=== PATIENT | male | born 1970 | race Caucasian/White ===

== ENCOUNTER 2020-03-28 23:20 | Inpatient (IN) | payer MEDICAID ==
[~2020-03-28] VITALS: Ht 170.2 cm; Wt 70.9 kg
[2020-03-28 23:30] VITALS: BP 133/83
--- NOTE | 2020-03-28 23:30 | NUR ---
ASSISTANT INVENTORY MANAGERRURAL CARRIER NOTES PATIENT ADMITTED DIRECTLY FROM [facility]. IN STABLE CONDITION. AMBULATORY. A/OX3-4; PRIMARY LANGUAGE [place]. PATIENT DENIES N/V/D AT THIS TIME. C/O UPPER ABDOMINAL PAIN RATED 7/10. IV PRESENT ON LEFT AC, SIZE 20, INTACT & PATENT, HEP LOCKED. UPON SKIN ASSESSMENT, MULTIPLE LARGE CIRCULAR BRUISES PRESENT ON BACK FROM CUPPING; PICTURES TAKEN AND PLACED IN CHART. BELONGINGS REVIEWED WITH PATIENT; WALLET AND PASSPORT PRESENT; PATIENT STATES HE WANTS TO KEEP BELONGINGS WITH HIM AT THE BEDSIDE; BELONGINGS LIST SIGNED AND PLACED IN CHART. SAFETY MEASURES IN PLACE AND PATIENT'S NEEDS MET. BED LOCKED, SIDE RAILS X2, HOB ELEVATED, CALL LIGHT WITHIN REACH. AUTOMATION SOFTWARE ENGINEER EFRAIN DAMON, MADE AWARE OF NEW ADMISSION; AWAITING FOR ADMITTING ORDERS. WILL CONTINUE TO MONITOR.
[2020-03-29] VITALS (8 sets, daily range): BP systolic 123–157; BP diastolic 65–101
[2020-03-29] MEDS ORDERED: ONDANSETRON HCL/PF 4 MG/2 ML VIAL IVP PRN (01:30)
[2020-03-29] MEDS ORDERED: MAGNESIUM HYDROXIDE 30 ML UDC PO PRN (01:30)
[2020-03-29] MEDS ORDERED: ACETAMINOPHEN 325 MG TABLET PO PRN (01:30)
[2020-03-29] MEDS ORDERED: MAG HYDROX/AL HYDROX/SIMETH 30 ML UDC PO PRN (01:30)
[2020-03-29] MEDS ORDERED: LORAZEPAM INJ 2 MG/ML VIAL IV PRN (01:30)
[2020-03-29] MEDS ORDERED: Z GUARD REMEDY 2 OZ OINT TP PRN (01:30)
[2020-03-29] MEDS ORDERED: HYDROCODONE/APAP 5/325MG 1 EACH TABLET PO PRN (01:30)
[2020-03-29] MEDS: PANTOPRAZOLE 40 MG VIAL IV SCH ×3 (01:35→21:21)
[2020-03-29] MEDS: IV NS 0.9% 1,000 ML IV SCH ×3 (01:36→21:28)
[2020-03-29 02:09] LABS: OCCULT BLOOD STOOL POSITIVE (NEGATIVE)
[2020-03-29 02:14] LABS: BASOPHILS # (AUTO) 0.2 /CMM (0.0-0.2); BASOPHILS % (AUTO) 1.6 % (0.0-2.0); EOSINOPHILS % (AUTO) 0.3 % (0.0-6.0); HEMATOCRIT 36 % (39-51); HEMOGLOBIN 12.2 g/dL (13.5-17.5); LYMPHOCYTES # (AUTO) 0.6 /CMM (0.8-4.8); LYMPHOCYTES % (AUTO) 5.7 % (20.0-44.0); MEAN CORPUSCULAR HGB CONC 34 g/dl (31.0-36.0); MEAN CORPUSCULAR VOLUME 92 fL (80-96); MONOCYTES % (AUTO) 9.4 % (2.0-12.0); NEUTROPHILS # (AUTO) 8.5 /CMM (1.8-8.9); PLATELET COUNT (AUTO) 262 /CMM (150-450); RED BLOOD CELL COUNT(AUTO) 3.93 MIL/uL (4.5-6.0); WHITE BLOOD COUNT (AUTO) 10.3 K/uL (4.3-11.0)
[2020-03-29 02:16] LABS: CALCIUM, SERUM 8.3 mg/dL (8.5-10.1); CREATININE 1.1 mg/dL (0.6-1.3); MAGNESIUM 2.1 mg/dL (1.8-2.4); POTASSIUM 3.7 mmol/L (3.5-5.1)
--- NOTE | 2020-03-29 06:47 | NUR ---
DAY CAMP UNIT LEADER CLOSING NOTES PATIENT SLEEPING IN BED, EASY TO AWAKEN. A/OX3-4. STABLE ON ROOM AIR; BREATHING IS EVEN AND UNLABORED. NO C/O N/V OR PAIN AT THIS TIME. TELE MONITOR READING NSR, HEART RATE 96. IV ON LEFT AC, SIZE 20, INTACT & PATENT WITH NS RUNNING AT 100 ML/HR. SAFETY MEASURES IN PLACE AND PATIENT'S NEEDS MET. BED LOCKED, ALARM ON, HOB ELEVATED, SIDE RAILS X2, CALL LIGHT WITHIN REACH. WILL ENDORSE TO DAY SHIFT NURSE PLAN OF CARE.
--- NOTE | 2020-03-29 08:03 | NUR ---
TELE/RN OPENING NOTES RECEIVED PATIENT AWAKE, IN BED. A/OX3-4. STABLE ON ROOM AIR; BREATHING IS EVEN AND UNLABORED. COMPLAINED OF PAIN RATE 5/10, WILL CHECKED THE MEDICATION ORDER. TELE MONITOR, SINUS TACHY 102 BPM. IV ON LEFT AC, SIZE # 20 G WITH NS 1L AT 100 ML/HR. SAFETY MEASURES IN PLACE. BED LOCKED, ALARM ON, HOB ELEVATED, SIDE RAILS X2, CALL LIGHT WITHIN REACH. WILL CONTINUE TO MONITOR.
[2020-03-29] MEDS: FOLIC ACID 1 MG TABLET PO SCH (08:50)
[2020-03-29] MEDS: THIAMINE HCL 100 MG TABLET PO SCH (08:50)
--- NOTE | 2020-03-29 11:50 | NUR ---
TELE/RN NOTES PATIENT IS OUT IN THE UNIT FOR EGD PROCEDURE. PATIENT IN NO APPARENT RESPIRATORY DISTRESS NOTED. BOILER TENDER BY GENERAL UTILITY MAINTENANCE REPAIRER.
[2020-03-29] MEDS ORDERED: FAMOTIDINE/PF INJ 20 MG/2 ML VIAL IV ONE (11:52)
[2020-03-29] MEDS ORDERED: MIDAZOLAM HCL 2 MG/2ML VIAL ONE (11:52)
[2020-03-29] MEDS ORDERED: SUCCINYLCHOLINE CHLORIDE 20 MG/ML VIAL ONE (12:05)
--- NOTE | 2020-03-29 13:00 | NUR ---
TELE/RN NOTES PATIENT CAME IN AND RECEIVED REPORT FROM MAGUE CHEERLEADING COACH, CLEAR LIQUID DIET, PROTONIX 40 MG IV BID AND RESUME PRE OP MEDS. V/S TAKEN AND RECORDED BP 138/89 HR 88 TEMP 97.8 SA02 100%. WILL CONTINUE TO MONITOR.
--- NOTE | 2020-03-29 19:15 | NUR ---
RN OPENING NOTE: PATIENT IN BED, AWAKE, VERBAL. AAOX4. NO SOB. NO C/O PAIN AT THIS TIME. S/P EGD, NO COMPLICATIONS NOTED AT THIS TIME. SAFETY PRECAUTIONS IMPLEMENTED. BOTH UPPER BILATERAL SIDE RAILS UP, HOB ELEVATED, BED LOCKED AND IN LOW POSITION. ON JACK SETTER, NSR, HR 70-80s. (L) AC G20, C/D/I. FLUSHING WELL. ON NS AT 100MLS/HR, TOLERATING WELL. CALL LIGHT WITHIN REACH. WILL CONT. TO MONITOR.
--- NOTE | 2020-03-29 19:33 | NUR ---
TELE/RN CLOSING NOTES PATIENT AWAKE IN BED RESTING COMFORTABLY, NON-VERBAL. NO SIGNS OF RESPIRATORY DISTRESS. NO DISTRESS NOTED THROUGHOUT SHIFT. TRACHEOSTOMY INTACT AND TOLERATING SETTING WITH SPO2 100%. LEFT UPPER MIDLINE INTACT AND PATENT. SKIN KEPT WARM, CLEAN AND DRY. ON FOSTER CARE SOCIAL WORKER, SR 68 BPM. GASTRIC ACCORDION INTACT. G-TUBE LINE CLAMPED. J-TUBE INTACT AND INFUSING JEVITY 1.2 AT 20ml/h AT THIS TIME, PATIENT HAVE 0 RESIDUAL, TOLERATED FEEDING WELL. CORONEL CATHETER INTACT AND PATENT. BILATERAL SOFT WRIST RESTRAINTS IN PLACE, SKIN CIRCULATION WITHIN NORMAL LIMITS. SAFETY PRECAUTIONS IN PLACE WITH BED IN THE LOWEST POSITION, HEAD OF THE BEAD IN SEMI-FOWLERS POSITION, BILATERAL SIDE RAILS UP, AND CALL LIGHT WITHIN EAST REACH OF THE PATIENT. WILL ENDORSED TO REHABILITATION CLERK FOR KAYLIE. Addendum: 03/29/20 at 1941 by BRANDON MYERS RN ERROR
--- NOTE | 2020-03-29 19:44 | NUR ---
TELE/RN CLOSING NOTES PATIENT IS ON BED AWAKE, ALERT AND ORIENTED X 4. BREATHING EVEN AND UNLABORED. PATIENT IN NO APPARENT RESPIRATORY DISTRESS NOTED. NO COMPLAINED OF PAIN AT THIS TIME. TELE MONITOR SR SR 94 BPM. IV ACCESS ON LEFT AC # 20 G WITH IV FLUID OF NS 1L AT 100 ML/HR . SEEN AND EXAMINED BY MD WITH ORDERS MADE AND CARRIED OUT. ALL DUE MEDICATION WAS GIVEN. CHECKED PATIENT EVERY [address]AFETY PRECAUTIONS IN PLACE. BED IN LOWEST POSITION AND LOCKED, CALL LIGHT WITHIN REACH. WILL ENDORSED TO LAWYER FOR KAYLIE.
--- NOTE | 2020-03-29 21:00 | NUR ---
RN NOTE: REPORT GIVEN TO KENDALL YAP FOR CONTINUITY OF CARE.
--- NOTE | 2020-03-29 21:15 | NUR ---
TELE/RN NOTES: PT. REPORT GIVEN BY FRACISCO VAZQUEZ. PT. STABLE. WILL CONTINUE PLAN OF CARE AND CONTINUE TO MONITOR PT. ACCORDINGLY.
[2020-03-30] VITALS: BP 133/72
[2020-03-30 00:03] VITALS: BP 133/72
[2020-03-30 04:00] VITALS: BP 132/77
--- NOTE | 2020-03-30 05:29 | NUR ---
TELE/RN NOTES: PT TEMP IS 99.8. APPLIED COOLING MEASURES, AND ADMINISTERED TYLENOL 650MG PO. TOLERATED WELL. WILL CONTINUE TO MONITOR,.
[2020-03-30 06:36] VITALS: BP 128/74
--- NOTE | 2020-03-30 06:54 | NUR ---
TELE/RN CLOSING NOTES: PATIENT IS ON BED SLEEPING, ALERT AND ORIENTED X 4. BREATHING EVEN AND UNLABORED. PATIENT IN NO APPARENT RESPIRATORY DISTRESS NOTED. NO COMPLAINED OF PAIN AT THIS TIME. TELE MONITOR SR 71 BPM. IV ACCESS ON LEFT AC # 20 G WITH IV FLUID OF NS AT 100 ML/HR. ALL DUE MEDICATION WAS GIVEN. ALL NURSING NEEDS MET. SAFETY PRECAUTIONS IN PLACE. BED IN LOWEST POSITION AND LOCKED, CALL LIGHT WITHIN REACH. WILL ENDORSED TO DAY SHIFT FOR KAYLIE.
--- NOTE | 2020-03-30 07:59 | NUR ---
SUPERVISOR MOLD CONSTRUCTION OPENING NOTE PATIENT IN BED RESTING COMFORTABLY. PATIENT IN NO ACUTE DISTRESS. NO SOB NOTED. PATIENT BREATHING IS EVEN AND UNLABORED. PATIENT ON CARDIAC MONITORING READING SINUS RHYTHM HR 60. SAFETY PRECAUTIONS IN PLACE. PATIENT BED ALARM IS ON. PATIENT BED IS LOCKED AND IN LOWEST POSITION. CALL LIGHT WITHIN REACH. WILL CONTINUE TO MONITOR.
[2020-03-30 08:00] VITALS: BP 133/80
[2020-03-30] MEDS: IV NS 0.9% 1,000 ML IV SCH (08:08)
[2020-03-30] MEDS: FOLIC ACID 1 MG TABLET PO SCH (08:08)
[2020-03-30] MEDS: PANTOPRAZOLE 40 MG VIAL IV SCH (08:08)
[2020-03-30] MEDS: THIAMINE HCL 100 MG TABLET PO SCH (08:08)
[2020-03-30 08:54] LABS: BASOPHILS # (AUTO) 0.1 /CMM (0.0-0.2); BASOPHILS % (AUTO) 1.4 % (0.0-2.0); HEMATOCRIT 25 % (39-51); HEMOGLOBIN 8.4 g/dL (13.5-17.5); LYMPHOCYTES # (AUTO) 1.4 /CMM (0.8-4.8); LYMPHOCYTES % (AUTO) 25.8 % (20.0-44.0); MEAN CORPUSCULAR HGB CONC 34 g/dl (31.0-36.0); MEAN CORPUSCULAR VOLUME 93 fL (80-96); MONOCYTES # (AUTO) 0.8 /CMM (0.1-1.30); MONOCYTES % (AUTO) 13.9 % (2.0-12.0); NEUTROPHILS # (AUTO) 3.1 /CMM (1.8-8.9); NEUTROPHILS % (AUTO) 57.9 % (43.0-81.0); PLATELET COUNT (AUTO) 161 /CMM (150-450); RED BLOOD CELL COUNT(AUTO) 2.69 MIL/uL (4.5-6.0); WHITE BLOOD COUNT (AUTO) 5.4 K/uL (4.3-11.0)
[2020-03-30] MEDS ORDERED: IV NS 0.9% 1,000 ML IV PRN (09:30)
[2020-03-30 09:50] LABS: CALCIUM, SERUM 7.3 mg/dL (8.5-10.1); CREATININE 0.8 mg/dL (0.6-1.3); MAGNESIUM 1.9 mg/dL (1.8-2.4); PHOSPHORUS 2.2 mg/dL (2.5-4.9); POTASSIUM 3.1 mmol/L (3.5-5.1)
--- NOTE | 2020-03-30 11:05 | NUR ---
MS RN NOTE DR. MOCTEZUMA SEEN AND EVALUATED PATIENT. PER MD UPGRADE DIET TO SOFT DIET.
--- NOTE | 2020-03-30 13:00 | NUR ---
MS RN NOTE PATIENT TOLERATED LUNCH WELL. PATIENT STATES NO NAUSEA, VOMITING, OR STOMACH PAIN. PATIENT IN NO ACUTE DISTRESS. WILL CONTINUE TO MONITOR.
[2020-03-30] MEDS ORDERED: OMEP40CA13 PO (14:15)
--- NOTE | 2020-03-30 16:20 | NUR ---
MS STAGE SETTINGS PAINTER NOTE PATIENT MEDICALLY CLEARED FOR DISCHARGE. PATIENT IN NO ACUTE DISTRESS. NO SOB NOTED. PATIENT BREATHING IS EVEN AND UNLABORED. PATIENT DC INSTRUCTIONS PROVIDED. PATIENT VERBALIZED UNDERSTANDING WITH [employer]NS[employer]IP PRESENT. PATIENT SKIN ASSESSED, NO NEW SKIN BREAKDOWN NOTED. PATIENT IV REMOVED. ID BAND REMOVED. PATIENT HAS BELONGINGS AND SIGNED BELONGINGS SHEET. PATIENT KEPT CLEAN, DRY AND COMFORTABLE THROUGHOUT SHIFT. NEEDS AND CONCERNS ADDRESSED. NO NAUSEA OR VOMITING THROUGHOUT MY SHIFT. PATIENT TOLERATED MEALS WELL. PATIENT AMBULATORY WITH STEADY GAIT, AND GOING HOME WITH FAMILY. MD AWARE OF DISCHARGE.
[2020-03-30] MEDS ORDERED: K PHOS NEUTRAL 250 MG TABLET PO ONE (17:30)
== END 2020-03-30 18:00 | disposition home or self-care (01) | DRG 242 ==
LOC: TELE 23:20 → MED 03-30 10:28
PROVIDERS: ADMIT Internal Medicine
PROC: 0W3P8ZZ Control Bleeding in Gastrointestinal Tract, Via Natural or Artificial Opening Endoscopic (ICD-10-PCS; principal; 2020-03-29)
PROC: 0DB78ZX Excision of Stomach, Pylorus, Via Natural or Artificial Opening Endoscopic, Diagnostic (ICD-10-PCS; principal; 2020-03-29)
DX: K22.6 Gastro-esophageal laceration-hemorrhage syndrome (principal); D62 Acute posthemorrhagic anemia; F17.200 Nicotine dependence, unspecified, uncomplicated; F10.10 Alcohol abuse, uncomplicated; Y90.9 Presence of alcohol in blood, level not specified; K21.0 Gastro-esophageal reflux disease with esophagitis; K44.9 Diaphragmatic hernia without obstruction or gangrene; K29.70 Gastritis, unspecified, without bleeding
CPT/HCPCS: 36415; 80048-TC; 82272-TC; 83735-TC; 84100-TC; 85025-TC; 87081-TC; 88305-TC; 88312-TC; C9113; G0378; J0330; J2250; J2405; J2704; J3490; J7030; J7042